=== PATIENT | female | born 1990 | race Caucasian/White ===

== ENCOUNTER 2016-08-03 21:28 | Emergency (ER) | payer OTHER ==
--- NOTE | 2016-08-03 21:53 | UC ---
Respiratory Complaint HPI - HPI Summary HPI Summary: Nasal congestion, runny nose, sore throat, h/a, & cough w/ yellow sputum since Friday night. + mild cough. no asthma, no wheezing. cc +PND and nasal congestion and hadr to breathe thourgh her nose. no sinus pain/pressure. exposed to many sick kids at work. - History of Current Complaint Chief Complaint: UCGeneralIllness Stated Complaint: SORE THROAT Time Seen by Provider: 08/03/16 21:31 Hx Last Menstrual Period: 07/31/16 - Allergies/Home Medications Allergies/Adverse Reactions: Allergies Allergy/AdvReac Type Severity Reaction Status Date / Time No Known Allergies Allergy Verified 08/03/16 21:36 PMH/Surg Hx/FS Hx/Imm Hx Previously Healthy: Yes - Surgical History Surgical History: Yes Surgery Procedure, Year, and Place: WISDOM TEETH EXTRACTIONS. COLONOSCOPY. endoscopy - Family History Known Family History: Negative: Respiratory Disease - Social History Alcohol Use: None Substance Use Type: None Smoking Status (MU): Never Smoked Tobacco - Immunization History Most Recent Influenza Vaccination: not this season Review of Systems Constitutional: Chills, Fatigue Skin: Negative Eyes: Negative ENT: Sore Throat, Nasal Discharge Respiratory: Cough Cardiovascular: Negative Gastrointestinal: Negative Genitourinary: Negative Motor: Negative Neurovascular: Negative Musculoskeletal: Negative Neurological: Negative Psychological: Negative All Other Systems Reviewed And Are Negative: Yes Physical Exam Triage Information Reviewed: Yes Appearance: Well-Appearing, No Pain Distress, Well-Nourished Vital Signs: Initial Vital Signs Temp 98.7 F 08/03/16 21:37 Pulse 99 08/03/16 21:37 Resp 16 08/03/16 21:37 BP 122/57 08/03/16 21:37 Pulse Ox 100 08/03/16 21:37 Vital Signs Reviewed: Yes Eye Exam: Normal ENT Exam: Normal ENT: Positive: Hearing grossly normal, Pharyngeal erythema - +PND. no exudate, Nasal congestion, Nasal drainage, TMs normal. Negative: TM bulging, TM dull, TM red, Tonsillar swelling, Tonsillar exudate, Muffled/hoarse voice Dental Exam: Normal Neck exam: Normal Neck: Positive: Supple, Nontender, No Lymphadenopathy Respiratory Exam: Normal Respiratory: Positive: Lungs clear - mild decreased breath sounds, No respiratory distress, No accessory muscle use. Negative: Crackles, Rhonchi, Stridor, Wheezing Cardiovascular Exam: Normal Cardiovascular: Positive: RRR, No Murmur, Pulses Normal, Brisk Capillary Refill Abdominal Exam: Normal Abdomen Description: Positive: Nontender, Soft Musculoskeletal Exam: Normal Neurological Exam: Normal Psychological Exam: Normal Skin Exam: Normal UC Diagnostic Evaluation - Laboratory O2 Sat by Pulse Oximetry: 100 Respiratory Course/Dx - Course Course Of Treatment: rapid strep is neg - Differential Dx/Diagnosis Differential Diagnosis/HQI/PQRI: Bronchitis, Laryngitis, Lower Resp Infection, Sinusitis Provider Diagnoses: Viral URI Discharge - Discharge Plan Condition: Stable Disposition: HOME Prescriptions: Albuterol HFA INHALER* [Ventolin HFA Inhaler*] 2 puff INH Q4H PRN #1 mdi PRN Reason: Cough Patient Education Materials: Upper Respiratory Infection (ED) Referrals: Isreal Lim DO [Primary Care Provider] - 3 Days Additional Instructions: Fluids and rest. use the albuterol inhaler. rapid strep is negative
[2016-08-03 22:10] VITALS: BP 122/77
== END 2016-08-03 22:14 | disposition home or self-care (01) ==
LOC: UCCORT 21:28
DX: J06.9 Acute upper respiratory infection, unspecified (principal)
CPT/HCPCS: 87651; 99212; G0463

== ENCOUNTER 2016-12-12 17:24 | Emergency (ER) | payer OTHER ==
[2016-12-12 17:46] VITALS: BP 125/72
--- NOTE | 2016-12-12 17:49 | UC ---
Throat Pain/Nasal Vaughn HPI - HPI Summary HPI Summary: 26 YEAR OLD FEMALE PRESENTS WITH COMPLAINS OF SORE THROAT. - History of Current Complaint Chief Complaint: UCGeneralIllness Stated Complaint: SORE THROAT Time Seen by Provider: 12/12/16 17:49 Hx Last Menstrual Period: 3 wks ago - Allergies/Home Medications Allergies/Adverse Reactions: Allergies Allergy/AdvReac Type Severity Reaction Status Date / Time No Known Allergies Allergy Verified 12/12/16 17:41 Home Medications: Home Medications Norethindrone Acet & Eth Estra [Loestrin 1.5/30-21 1.5-30 mg-Mcg] 1 tab PO BEDTIME 12/12/16 [History Confirmed 12/12/16] Pseudoephedrine TAB* [Sudafed TAB*] 30 mg PO Q6H PRN 12/12/16 [History Confirmed 12/12/16] PMH/Surg Hx/FS Hx/Imm Hx - Surgical History Surgical History: Yes Surgery Procedure, Year, and Place: WISDOM TEETH EXTRACTIONS. COLONOSCOPY. endoscopy - Family History Known Family History: Positive: None Negative: Respiratory Disease - Social History Alcohol Use: Occasionally Substance Use Type: None Smoking Status (MU): Never Smoked Tobacco - Immunization History Most Recent Influenza Vaccination: not this season Review of Systems Constitutional: Negative Skin: Negative Eyes: Negative ENT: Sore Throat, Nasal Discharge Respiratory: Negative Cardiovascular: Negative Gastrointestinal: Negative Genitourinary: Negative Motor: Negative Neurovascular: Negative Musculoskeletal: Negative Neurological: Negative Psychological: Negative All Other Systems Reviewed And Are Negative: Yes Physical Exam Triage Information Reviewed: Yes Vital Signs: Initial Vital Signs Temp 37.1 C 12/12/16 17:42 Pulse 78 12/12/16 17:42 Resp 16 12/12/16 17:42 BP 125/72 12/12/16 17:42 Pulse Ox 100 12/12/16 17:42 Eye Exam: Normal ENT: Positive: Pharyngeal erythema, Tonsillar swelling Dental Exam: Normal Neck exam: Normal Neck: Positive: 1 Respiratory Exam: Normal Cardiovascular Exam: Normal Abdominal Exam: Normal Musculoskeletal Exam: Normal Neurological Exam: Normal Psychological Exam: Normal Skin Exam: Normal Throat Pain/Nasal Course/Dx - Differential Dx/Diagnosis Provider Diagnoses: PHARYNGITIS Discharge - Discharge Plan Condition: Stable Disposition: HOME Prescriptions: Amoxicillin/Clavulanate TAB* [Augmentin TAB 875*] 875 mg PO BID #14 tab LoraTADine TAB(NF) [Claritin 10 MG TAB(NF)] 10 mg PO DAILY #30 tab Magic M W2 Sixto/Maal/Nyst/Lido* 15 ml SWISH SPIT QID #120 ml Patient Education Materials: Pharyngitis (ED) Referrals: Isreal Lim DO [Primary Care Provider] - If Needed
== END 2016-12-12 18:25 | disposition home or self-care (01) ==
LOC: UCCORT 17:24
DX: J02.9 Acute pharyngitis, unspecified (principal); R09.81 Nasal congestion
CPT/HCPCS: 87651; 99212; G0463

== ENCOUNTER 2017-12-31 19:42 | Emergency (ER) | payer OTHER ==
[2017-12-31 20:12] VITALS: BP 119/78
[2017-12-31] MEDS ORDERED: Benzonatate CAP* 100 MG PO ONE (20:31)
--- NOTE | 2017-12-31 20:31 | UC ---
Respiratory Complaint HPI - HPI Summary HPI Summary: Pt c/o cough and "burning chest" X 1 week. Denies fever, chills, SOB hx of asthma. - History of Current Complaint Chief Complaint: UCGeneralIllness Stated Complaint: COUGH Time Seen by Provider: 12/31/17 20:23 Hx Obtained From: Patient Hx Last Menstrual Period: 12/04/17 ?: No Onset/Duration: Gradual Onset, Lasting Days, Still Present Timing: Intermittent Episodes Severity Initially: Mild Severity Currently: Mild Pain Intensity: 0 Character: Cough: Nonproductive - occasionally productive, but Aggravating Factors: Allergens, Exertion, Deep Breaths, Recumbent Position Associated Signs And Symptoms: Positive: Nasal Congestion Related History: Seasonal Allergies - Risk Factors Pulmonary Embolism Risk Factors: Oral Contraceptives Cardiac Risk Factors: Negative Pseudomonas Risk Factors: Negative Tuberculosis Risk Factors: Negative - Allergies/Home Medications Allergies/Adverse Reactions: Allergies Allergy/AdvReac Type Severity Reaction Status Date / Time No Known Allergies Allergy Verified 12/12/16 17:41 Home Medications: Home Medications GuaiFENesin DM* [Robitussin DM*] 10 ml PO DAILY 12/31/17 [History Confirmed ] PMH/Surg Hx/FS Hx/Imm Hx Previously Healthy: Yes - Surgical History Surgical History: Yes Surgery Procedure, Year, and Place: WISDOM TEETH EXTRACTIONS. COLONOSCOPY. endoscopy - Family History Known Family History: Positive: None Negative: Respiratory Disease - Social History Occupation: Employed Full-time Lives: With Family Alcohol Use: Occasionally Substance Use Type: None Smoking Status (MU): Never Smoked Tobacco Have You Smoked in the Last Year: No - Immunization History Most Recent Influenza Vaccination: not this season Review of Systems Constitutional: Negative Skin: Negative Eyes: Negative ENT: Negative Respiratory: Cough Cardiovascular: Negative Gastrointestinal: Negative Genitourinary: Negative Motor: Negative Neurovascular: Negative Musculoskeletal: Negative Neurological: Negative Psychological: Negative Is Patient Immunocompromised?: No All Other Systems Reviewed And Are Negative: Yes Physical Exam Triage Information Reviewed: Yes Appearance: Well-Appearing Vital Signs: Initial Vital Signs Temp 98.7 F 12/31/17 20:09 Pulse 88 12/31/17 20:09 Resp 20 12/31/17 20:09 BP 119/78 12/31/17 20:09 Pulse Ox 99 12/31/17 20:09 Vital Signs Reviewed: Yes Eye Exam: Normal ENT Exam: Other ENT: Positive: Nasal congestion Dental Exam: Normal Neck exam: Normal Neck: Positive: Supple, Nontender Respiratory Exam: Normal Respiratory: Positive: Normal breath sounds, No respiratory distress Cardiovascular Exam: Normal Musculoskeletal Exam: Normal Neurological Exam: Normal Psychological Exam: Normal Skin Exam: Normal UC Diagnostic Evaluation - Laboratory O2 Sat by Pulse Oximetry: 99 Respiratory Course/Dx - Differential Dx/Diagnosis Differential Diagnosis/HQI/PQRI: Bronchitis, Other - pneumonia Provider Diagnoses: acute cough Discharge - Sign-Out/Discharge Documenting (check all that apply): Patient Departure - Discharge Plan Condition: Stable Disposition: HOME Prescriptions: Benzonatate CAP* [Tessalon 100 MG CAP*] 100 mg PO Q8H PRN #30 cap PRN Reason: Cough predniSONE TAB* [Deltasone 10 MG TAB*] 30 mg PO DAILY #9 tab Patient Education Materials: Acute Cough (ED) Referrals: Tanisha Blackburn MD [Primary Care Provider] - If Needed - Billing Disposition and Condition Condition: STABLE Disposition: Home Attestation Statement User Type: Provider - I was available for consult. This patient was seen by the HARVINDER. The patient was not presented to, seen by, or examined by me. -Ellen
== END 2017-12-31 20:45 | disposition home or self-care (01) ==
LOC: UCCORT 19:42
DX: R05 Cough (principal)
CPT/HCPCS: 99212; A9270-GY; G0463

== ENCOUNTER 2018-07-29 13:40 | Emergency (ER) | payer OTHER ==
[2018-07-29 14:09] VITALS: BP 126/95
--- NOTE | 2018-07-29 14:11 | UC ---
Respiratory Complaint HPI - History of Current Complaint Chief Complaint: UCGeneralIllness Stated Complaint: COUGH, SINUSES, FATIGUE Time Seen by Provider: 07/29/18 14:11 Hx Obtained From: Patient Hx Last Menstrual Period: 12/04/17 ?: No Onset/Duration: Gradual Onset Timing: Constant Severity Initially: Mild Severity Currently: Mild Pain Intensity: 0 Aggravating Factors: Nothing Associated Signs And Symptoms: Positive: Chills, Nasal Congestion - Risk Factors Pulmonary Embolism Risk Factors: Negative Cardiac Risk Factors: Negative Pseudomonas Risk Factors: Negative Tuberculosis Risk Factors: Negative - Allergies/Home Medications Allergies/Adverse Reactions: Allergies Allergy/AdvReac Type Severity Reaction Status Date / Time No Known Allergies Allergy Verified 07/29/18 14:03 Home Medications: Home Medications D-Methorphan/PE/Acetaminophen [Daytime Cold-Flu Relief Sftgl] 1 each PO ONCE [History Confirmed 07/29/18] Ibuprofen TAB* [Advil TAB*] 600 mg PO Q6H PRN 07/29/18 [History Confirmed ] L.acidoph,Paracasei, B.lactis [Probiotic] 1 each PO DAILY 07/29/18 [History Confirmed 07/29/18] PMH/Surg Hx/FS Hx/Imm Hx Previously Healthy: Yes - Surgical History Surgical History: Yes Surgery Procedure, Year, and Place: WISDOM TEETH EXTRACTIONS. COLONOSCOPY. endoscopy - Family History Known Family History: Positive: None Negative: Respiratory Disease - Social History Occupation: Employed Full-time Alcohol Use: Occasionally Substance Use Type: None Smoking Status (MU): Never Smoked Tobacco Have You Smoked in the Last Year: No - Immunization History Most Recent Influenza Vaccination: not this season Review of Systems All Other Systems Reviewed And Are Negative: Yes Constitutional: Positive: Chills Skin: Positive: Negative Eyes: Positive: Negative ENT: Positive: Sore Throat, Nasal Discharge, Sinus Congestion Respiratory: Positive: Cough - Non-productive cough Cardiovascular: Positive: Negative Gastrointestinal: Positive: Negative Genitourinary: Positive: Negative Motor: Positive: Negative Neurovascular: Positive: Negative Musculoskeletal: Positive: Negative Neurological: Positive: Negative, Headache - Very mild headache Psychological: Positive: Negative Is Patient Immunocompromised?: No Physical Exam Triage Information Reviewed: Yes Appearance: Well-Appearing, No Pain Distress, Well-Nourished Vital Signs: Initial Vital Signs Temp 98.2 F 07/29/18 14:04 Pulse 103 07/29/18 14:04 Resp 17 07/29/18 14:04 BP 126/95 07/29/18 14:04 Pulse Ox 97 07/29/18 14:04 Vital Signs Reviewed: Yes Eye Exam: Other - Mildly watery eyes, no purulent drainage ENT: Positive: Pharynx normal, Nasal congestion, Nasal drainage - Clear nasal coryza Neck exam: Normal Neck: Positive: Supple, Nontender, No Lymphadenopathy Respiratory Exam: Normal Respiratory: Positive: Lungs clear, Normal breath sounds, No respiratory distress Cardiovascular Exam: Normal Cardiovascular: Positive: RRR, No Murmur - Mildly tachycardic at 103 Abdominal Exam: Normal Abdomen Description: Positive: Nontender, No Organomegaly, Soft Bowel Sounds: Positive: Present Musculoskeletal Exam: Normal Musculoskeletal: Positive: Strength Intact, ROM Intact Neurological: Positive: Alert Psychological Exam: Normal Skin Exam: Normal UC Diagnostic Evaluation - Laboratory O2 Sat by Pulse Oximetry: 97 Respiratory Course/Dx - Course Course Of Treatment: Comfortable here. Flu test requested by patient and was negative. Discharged to continue OTC cold meds, rest, increase fluids. Follow up with Primary Care Provider in 3-4 days if no improvement. - Differential Dx/Diagnosis Provider Diagnosis: URI (upper respiratory infection) Discharge - Sign-Out/Discharge Documenting (check all that apply): Patient Departure All imaging exams completed and their final reports reviewed: No Studies - Discharge Plan Condition: Good Disposition: HOME Patient Education Materials: Upper Respiratory Infection (DC) Forms: *Gen. Provider Communication, *Work Release Referrals: Tanisha Blackburn MD [Primary Care Provider] - Additional Instructions: Rest, increase fluids. Continue OTC cold meds as directed - Billing Disposition and Condition Condition: GOOD Disposition: Home - Attestation Statements Provider Attestation: Per institutional requirements, I have reviewed the chart, however, I was not consulted specifically or made aware of this patient by the midlevel provider. I did not personally evaluate, interact with , or disposition this patient.
[2018-07-29 14:35] LABS: Influenza A Molecular NEGATIVE (Negative); Influenza B Molecular NEGATIVE (Negative)
== END 2018-07-29 15:01 | disposition home or self-care (01) ==
LOC: UCCORT 13:40
DX: J06.9 Acute upper respiratory infection, unspecified (principal)
CPT/HCPCS: 99211; G0463

== ENCOUNTER 2018-12-29 19:01 | Emergency (ER) | payer OTHER ==
[2018-12-29 19:28] VITALS: BP 138/89
--- NOTE | 2018-12-29 19:40 | ED ---
Lower Extremity - HPI Summary HPI Summary: 28 yr old female with the complaint of left great toe pain along the medial side of her nail. Onset at 430 pm today with some redness. the pain is moderate. 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 She walks a lot. She denies fever, trauma. - History of Current Complaint Chief Complaint: UCSkin Stated Complaint: LT GREAT TO SKIN CONCERN Time Seen by Provider: 12/29/18 19:24 Hx Last Menstrual Period: 12/02/18 Pain Intensity: 6 - Allergies/Home Medications Allergies/Adverse Reactions: Allergies Allergy/AdvReac Type Severity Reaction Status Date / Time No Known Allergies Allergy Verified 12/29/18 19:23 PMH/Surg Hx/FS Hx/Imm Hx - Surgical History Surgery Procedure, Year, and Place: WISDOM TEETH EXTRACTIONS. COLONOSCOPY. endoscopy. colposcopy- biopsy x2 done September 2018 Infectious Disease History: No Infectious Disease History: Denies: Traveled Outside the in Last 30 Days - Family History Known Family History: Positive: None Negative: Respiratory Disease - Social History Occupation: Employed Full-time Alcohol Use: Occasionally Substance Use Type: Reports: None Smoking Status (MU): Never Smoked Tobacco Have You Smoked in the Last Year: No Review of Systems Constitutional: Negative Positive: Other - left great toe pain, redness lateral skin All Other Systems Reviewed And Are Negative: Yes Physical Exam Triage Information Reviewed: Yes Vital Signs On Initial Exam: Initial Vitals Temp Pulse Resp BP Pulse Ox 96.5 F 93 16 138/89 100 12/29/18 19:23 12/29/18 19:23 12/29/18 19:23 12/29/18 19:23 12/29/18 19:23 Vital Signs Reviewed: Yes Appearance: Positive: Well-Appearing, No Pain Distress Skin: Positive: Warm, Skin Color Reflects Adequate Perfusion Head/Face: Positive: Normal Head/Face Inspection Eyes: Positive: EOMI ENT: Positive: Normal ENT inspection Neck: Positive: Supple Respiratory/Lung Sounds: Positive: Other - normal Cardiovascular: Positive: Pulses are Symmetrical in both Upper and Lower Extremities Abdomen Description: Negative: Distended Musculoskeletal: Positive: Other - left great toe with redness to the lateral skin fold. No fluctuance, no drainage. Neurological: Positive: Alert, Oriented to Person Place, Time Psychiatric: Positive: Normal - Ishmael Coma Scale Best Eye Response: 4 - Spontaneous Best Motor Response: 6 - Obeys Commands Best Verbal Response: 5 - Oriented Coma Scale Total: 15 Diagnostics - Vital Signs Vital Signs Temp Pulse Resp BP Pulse Ox 12/29/18 19:23 96.5 F 93 16 138/89 100 - Laboratory Lab Statement: Any lab studies that have been ordered have been reviewed, and results considered in the medical decision making process. Lower Extremity Course/Dx - Course Course Of Treatment: Paronychia. Rx with keflex - Diagnoses Provider Diagnoses: Paronychia of great toe, left, Hypertension Discharge - Sign-Out/Discharge Documenting (check all that apply): Patient Departure All imaging exams completed and their final reports reviewed: No Studies - Discharge Plan Condition: Good Disposition: HOME Prescriptions: Cephalexin CAP* [Keflex CAP*] 500 mg PO QID #40 cap Patient Education Materials: Paronychia (ED), Hypertension (ED) Forms: *Work Release Referrals: Tanisha Blackburn MD [Primary Care Provider] - 2 Days - Billing Disposition and Condition Condition: GOOD Disposition: Home
== END 2018-12-29 19:40 | disposition home or self-care (01) ==
LOC: UCCORT 19:01
DX: L03.032 Cellulitis of left toe (principal); I10 Essential (primary) hypertension
CPT/HCPCS: 99212; G0463